=== PATIENT | female | born 1960 | race Caucasian/White ===

== ENCOUNTER 2017-06-01 08:22 | Emergency (ER) | payer MEDICAID ==
[~2017-06-01] VITALS: Ht 154.9 cm; Wt 61.2 kg
[2017-06-01 08:22] VITALS: BP_SYST 144
--- NOTE | 2017-06-01 08:22 | NUR ---
BROUGHT BACK TO BED #3 AND TRIAGED. REPORT GIVEN TO HEIDE
--- NOTE | 2017-06-01 08:34 | NUR ---
Pt complains of pain to left hand that radiates to arm, pt states was bite her cat 4 days ago and then washed the dog Wednesday, her hand started swelling to hand Wednesday, pt states has been getting chills for the past 2 days. Pt denies n/v or diarrhea. No other injuries/complaints per pt or noted
--- NOTE | 2017-06-01 08:35 | NUR ---
ER at bedside examining patient.
--- NOTE | 2017-06-01 09:00 | NUR ---
Pt is resting comfortably with no noted distress or discomfort.
[2017-06-01 09:03] LABS: EOSINOPHILS % (AUTO) 0.1 % (0.0-4.0); MONOCYTES # (AUTO) 0.6 K/uL (0.0-1.0); WHITE BLOOD COUNT (AUTO) 12.7 K/uL (4.8-10.8)
[2017-06-01 09:04] LABS: BILIRUBIN,URINE NEGATIVE (NEGATIVE); BLOOD, URINE NEGATIVE (NEGATIVE); CLARITY/URINE CLEAR (CLEAR); COLOR,URINE YELLOW (YELLOW); GLUCOSE,URINE NEGATIVE (NEGATIVE); KETONES,URINE NEGATIVE (NEGATIVE); LEUKOCYTE ESTERASE ,URINE NEGATIVE (NEGATIVE); NITRITE, URINE NEGATIVE (NEGATIVE); PH,URINE 6.5 (5.0-8.0); PROTEIN URINE NEGATIVE (NEGATIVE); UROBILINOGEN,URINE 0.2 (0.2-1.0)
[2017-06-01 09:05] LABS: BASOPHILS % (AUTO) 0.3 % (0.0-2.0); HEMATOCRIT 47.8 % (36-48); HEMOGLOBIN 15.8 g/dL (12.0-16.0); LYMPHOCYTES # (AUTO) 1.1 K/uL (1.0-5.5); LYMPHOCYTES % (AUTO) 8.4 % (20.5-51.5); MEAN CORPUSCULAR HEMOGLOBIN 28 pg (27-31); MEAN CORPUSCULAR HGB CONC 33 % (32-36); MEAN CORPUSCULAR VOLUME 86 fL (79.0-98.0); MONOCYTES % (AUTO) 4.7 % (1.7-9.3); NEUTROPHILS % (AUTO) 86.5 % (40.0-70.0); PLATELET COUNT (AUTO) 214 K/uL (130-430); RED BLOOD CELL COUNT(AUTO) 5.59 MIL/uL (4.2-6.2); RED CELL DISTRIBUTION WIDTH 12.7 % (9.0-15.0)
[2017-06-01 09:06] LABS: CALCIUM 9.8 mg/dL (8.4-11.0); CREATININE 0.87 mg/dL (0.55-1.30); POTASSIUM 3.8 mmol/L (3.5-5.1)
[2017-06-01 09:11] LABS: TOTAL BILIRUBIN 0.6 mg/dL (0.0-1.0)
[2017-06-01] MEDS ORDERED: PIPERACILLIN/TAZO 3.375 GM in NS 50 ML IV ONE (09:15)
[2017-06-01] MEDS ORDERED: PIPERACILLIN/TAZOBACTAM 3.375 GM/VIAL (ZOSYN) IV ONE (09:44)
--- NOTE | 2017-06-01 09:45 | NUR ---
Pt was given zosyn, no noted adverse reaction, will continue to monitor.
[2017-06-01] MEDS ORDERED: IBUPROFEN 800 MG TABLET PO ONE (10:00)
--- NOTE | 2017-06-01 10:17 | NUR ---
Pt was given pain medicaiton, no noted adverse reaction, will continue to monitor.
[2017-06-01 10:21] VITALS: BP_SYST 130
--- NOTE | 2017-06-01 10:21 | NUR ---
Patient given written and verbal discharge instructions and verbalizes understanding. ER MD discussed with patient the results and treatment provided. Patient in stable condition. ID arm band removed. IV catheter removed intact and dressing applied, no active bleeding. Rx of Augmentin and Ibuprofen given. Patient educated on pain management and to follow up with PMD. Pain Scale 4. Dr. Asencio was aware, pain medication was given here and prescription for home. Opportunity for questions provided and answered.
== END 2017-06-01 10:21 | disposition home or self-care (01) ==
LOC: SED 08:22
DX: S60.572A Other superficial bite of hand of left hand, initial encounter (principal); L03.114 Cellulitis of left upper limb; F17.210 Nicotine dependence, cigarettes, uncomplicated; W55.01XA Bitten by cat, initial encounter; Y93.89 Activity, other specified; Y92.89 Other specified places as the place of occurrence of the external cause; Y99.8 Other external cause status
CPT/HCPCS: 36415; 80053; 81003; 83605; 85025; 87040; 96365; 99284; J2543

== ENCOUNTER 2018-09-02 17:52 | Emergency (ER) | payer MEDICAID ==
[~2018-09-02] VITALS: Ht 154.9 cm; Wt 61.2 kg
[2018-09-02 18:08] VITALS: BP_SYST 151
[2018-09-02] MEDS ORDERED: DIPHENHYDRAMINE INJ 50 MG/ML VIAL IVP ONE (18:30)
[2018-09-02] MEDS ORDERED: PIPERACILLIN/TAZO 3.38 GM in NS 50 ML IV ONE (18:30)
[2018-09-02] MEDS ORDERED: MORPHINE 4 MG/ML INJ. SYRINGE IVP ONE ×2 (18:30→22:00)
[2018-09-02 18:46] LABS: BILIRUBIN,URINE NEGATIVE (NEGATIVE); BLOOD, URINE NEGATIVE (NEGATIVE); CLARITY/URINE CLEAR (CLEAR); COLOR,URINE YELLOW (YELLOW); GLUCOSE,URINE NEGATIVE (NEGATIVE); KETONES,URINE NEGATIVE (NEGATIVE); LEUKOCYTE ESTERASE ,URINE NEGATIVE (NEGATIVE); NITRITE, URINE NEGATIVE (NEGATIVE); PH,URINE 6.5 (5.0-8.0); PROTEIN URINE NEGATIVE (NEGATIVE); UROBILINOGEN,URINE 0.2 (0.2-1.0)
[2018-09-02 18:54] LABS: BASOPHILS % (AUTO) 0.4 % (0.0-2.0); EOSINOPHILS % (AUTO) 0.3 % (0.0-4.0); HEMOGLOBIN 16.2 g/dL (12.0-16.0); LYMPHOCYTES # (AUTO) 1.3 K/uL (1.0-5.5); LYMPHOCYTES % (AUTO) 11.5 % (20.5-51.5); MEAN CORPUSCULAR HEMOGLOBIN 29 pg (27-31); MEAN CORPUSCULAR HGB CONC 33 % (32-36); MEAN CORPUSCULAR VOLUME 88 fL (79.0-98.0); MONOCYTES # (AUTO) 0.3 K/uL (0.0-1.0); MONOCYTES % (AUTO) 2.6 % (1.7-9.3); NEUTROPHILS # (AUTO) 9.5 K/uL (1.8-7.7); NEUTROPHILS % (AUTO) 85.2 % (40.0-70.0); PLATELET COUNT (AUTO) 300 K/uL (130-430); RED CELL DISTRIBUTION WIDTH 12.6 % (9.0-15.0); WHITE BLOOD COUNT (AUTO) 11.1 K/uL (4.8-10.8)
[2018-09-02] MEDS ORDERED: PIPERACILLIN/TAZOBACTAM 3.375 GM/VIAL (ZOSYN) IV ONE (18:55)
[2018-09-02 18:57] LABS: CREATININE 0.81 mg/dL (0.55-1.30); POTASSIUM 3.8 mmol/L (3.5-5.1)
[2018-09-02 18:59] LABS: PROTHROMBIN TIME 9.9 SECS (9.5-12.5)
[2018-09-02 19:03] LABS: ALBUMIN 4.4 g/dL (3.4-4.8); TOTAL BILIRUBIN 0.4 mg/dL (0.0-1.0)
[2018-09-02] MEDS ORDERED: IOHEXOL 100 ML IV ONE (20:36)
[2018-09-02 22:15] VITALS: BP_SYST 141
== END 2018-09-02 22:15 | disposition home or self-care (01) ==
LOC: SED 17:52
DX: N28.1 Cyst of kidney, acquired (principal); E78.5 Hyperlipidemia, unspecified; R03.0 Elevated blood-pressure reading, without diagnosis of hypertension; Z98.51 Tubal ligation status
CPT/HCPCS: 36415; 71045; 74176; 74177; 80053; 81003; 83605; 83690; 85025; 85610; 87040; 93005; 96365; 96375; 96376; 99284; J1200; J2270; J2543; Q9967; J7030